=== PATIENT | female | born 1995 | race Caucasian/White ===

== ENCOUNTER 2021-10-05 05:33 | Observation (INO) ==
--- NOTE | 2021-10-03 13:07 | Anesthesiology Consultation ---
Date of Service October 03, 2021 Assessment & Plan (1) Encounter for pre-operative examination: - COVID screening: Per assessment on 10/03: No known COVID-19 positive contacts or current COVID-19 related symptoms. Travel screen negative. Preop Covid test (10/01; [facility]) was negative. - Check test AM DOS Chart Review Chart Review: Acceptable Risk for Surgery and Patient NOT seen in Pre Admission Testing History Surgery Operation Date: 10/05/21 07:00 Proposed Procedures p Diagnostic Open Laparotomy, Abdominal Myomectomy - Indu Kim Height/Weight Height: 5 ft 8 in Weight: 108.862 kg Allergies Allergy/AdvReac Type Severity Reaction Status Date / Time No Known Allergies Allergy Verified 10/03/21 12:16 Medications Home Medications Medication Instructions Recorded Confirmed Last Taken albuterol 90 mcg/actuation aerosol 90 mcg INHALATION Q4H PRN 10/03/21 10/03/21 Unknown inhaler venlafaxine 37.5 mg tablet 37.5 mg PO QAM 10/03/21 10/03/21 Unknown Past Medical History Medical History Anxiety Asthma well controlled Depression History of COVID-19 02/2021 Medical cannabis use Obesity Past Family History Family History Other No family history of adverse response to anesthesia Past Surgical History Surgical History H/O wisdom tooth extraction Hx of hemorrhoidectomy Social History Smoking Status: Current some day smoker tobacco type: cigarettes Do You Dip or Chew Tobacco: No Hx Alcohol Use: Yes Alcohol type: beer Hx Substance Use: Yes (medical THC) substance use type: marijuana Testing Laboratory Results 10/01/21 WBC 10.76 H/H 13.9/41.1 PLATELETS 264 SODIUM 139 POTASSIUM 3.9 CHLORIDE 104 CO2 23 BUN 10 CREATININE 0.7 GLUCOSE 84
[2021-10-05] MEDS ORDERED: LACTATED RINGER'S 1,000 ML IV SCH ×2 (06:00→10:30)
[2021-10-05] MEDS ORDERED: LR 15ML/HR IV SCH (06:00)
[2021-10-05] MEDS ORDERED: MIDAZOLAM HCL 1 MG/ML 2ML VIAL ONE (06:36)
[2021-10-05] MEDS ORDERED: fentaNYL citrate 100 MCG/2 ML VIAL ONE ×2 (06:37)
[2021-10-05] MEDS ORDERED: SCOPOLAMINE 1 MG TDSY TD ONE (06:37)
[2021-10-05] MEDS ORDERED: HYDROmorphone INJ 1 MG/ML SYRINGE ONE (06:37)
[2021-10-05] MEDS ORDERED: BUPIVACAINE LIPOSOME 1.3% 266 MG/20 ML VIAL ONE ×2 (06:40→07:09)
[2021-10-05] MEDS ORDERED: VASOPRESSIN 20 UNIT/ML VIAL ONE (06:40)
[2021-10-05] MEDS ORDERED: GLYCOPYRROLATE 0.2 MG/ML VIAL ONE (06:40)
[2021-10-05] MEDS ORDERED: DEXAMETHASONE SOD INJ 4 MG/ML VIAL ONE (06:40)
[2021-10-05] MEDS ORDERED: NEOSTIGMINE METHYLSULFATE 1 MG/ML 10ML VIAL ONE (06:40)
[2021-10-05] MEDS ORDERED: PROPOFOL IV EMULSION 10 MG/ML 20 ML VIAL IV ONE (06:40)
[2021-10-05] MEDS ORDERED: ROCURONIUM BROMIDE 10 MG/ML 5 ML VIAL IV ONE ×4 (06:40→08:33)
[2021-10-05] MEDS ORDERED: ONDANSETRON INJ 2 MG/ML 2 ML VIAL ONE (06:40)
[2021-10-05] MEDS ORDERED: diphenhydrAMINE 50 MG/ML VIAL ONE (06:40)
[2021-10-05] MEDS ORDERED: SODIUM CHLORIDE 0.9% PF 50 ML VIAL ONE (06:41)
[2021-10-05] MEDS ORDERED: ALBUMIN HUMAN 5% 12.5 GM/250 ML VIAL IV ONE (06:41)
[2021-10-05] MEDS ORDERED: SODIUM CHLORIDE 0.9% INJ 10 ML VIAL ONE (06:41)
[2021-10-05] MEDS ORDERED: ACETAMINOPHEN 1000 MG/100 ML IV IV ONE (06:41)
--- NOTE | 2021-10-05 06:43 | History & Physical Bridge Note ---
Date of Service October 05, 2021 History & Physical Bridge Note I have examined the patient, reviewed the History & Physical and in the interval since the performance of the History & Physical I have noted the following changes of clinical significance: no changes noted
[2021-10-05] MEDS ORDERED: BUPIVACAINE 0.5 % 5 MG/1 ML PF 10ML VIAL ONE (07:03)
[2021-10-05] MEDS ORDERED: HEPARIN (PORCINE) 1000 UNIT/ML 10 ML (CATH LAB USE ONLY) ONE (07:03)
[2021-10-05] MEDS ORDERED: BUPIVACAINE 0.5 % 5 MG/1 ML MPF 30ML VIAL ONE (07:24)
[2021-10-05] MEDS ORDERED: ALBUTEROL HFA INHALER 8.5 GM ONE (08:02)
[2021-10-05] MEDS ORDERED: HYDROmorphone INJ 1 MG/ML SYRINGE IV PRN (08:40)
[2021-10-05] MEDS ORDERED: ATROPINE SULFATE 0.1 MG/ML 10ML SYR IV PRN (08:40)
[2021-10-05] MEDS ORDERED: ePHEDrine sulfate 50 MG/ML AMP IV PRN (08:40)
[2021-10-05] MEDS ORDERED: ONDANSETRON INJ 2 MG/ML 2 ML VIAL IV PRN ×2 (08:40→10:12)
--- NOTE | 2021-10-05 10:06 | Post Operative Brief Note ---
Immediate Post Op Note v1 Date of Surgery October 05, 2021 Pre & Post Diagnosis Operation Date: 10/05/21 07:00 Pre-Op Diagnosis: Fibroid of Cervix Post-Op Diagnosis: Fibroid of Cervix I identified the patient and participated in the time-out.: Yes Procedure Operation Date: 10/05/21 07:00 Actual Procedures p Diagnostic Open Laparotomy, Abdominal Myomectomy(Not Applicable) - Indu Kim Surgeon Indu Kim Family Member Caretaker Claudia Brown PA-C Estimated Blood Loss 100 Findings Consistent with Post-Op Diagnosis Drains Ruano Catheter (inserted at start of procedure by EDIE)
--- NOTE | 2021-10-05 10:10 | Operative Report ---
Post Operative Report Pre & Post Diagnosis Operation Date: 10/05/21 07:00 Pre-Op Diagnosis: Fibroid of Cervix Post-Op Diagnosis: Fibroid of Cervix I identified the patient and participated in the time-out.: Yes Procedure Operation Date: 10/05/21 07:00 Actual Procedures p Diagnostic Open Laparotomy, Abdominal Myomectomy(Not Applicable) - Indu Kim Surgeon Indu Kim Therapeutic Recreation Assistant Claudia Brown PA-C Estimated Blood Loss 100 Findings See Below 1. Small anteverted uterus 2. Normal appearing fallopian tubes and ovaries bilaterally 3. 6 cm (approximate estimate) cervical fibroid invading into the posterior uterine serosa Fluids See Anesthesia Report Specimens Cervical fibroid Drains Sanford catheter. Urine during the procedure: 400 ml Anesthesia Type General Complications none Indications 26 yo with irregular heavy menses, dysmenorrhea and pain without menses. Imaging revealed a 5.9 cm cervical fibroid. Patient presents today for abdominal myomectomy Description of Procedure The patient was taken to the operating room when anesthesia was found to be adequate for the abdominal myomectomy procedure. A tap block was performed by Anesthesia (see note). She was then prepared and draped in a normal sterile fashion, in dorsal lithotomy position. A sanford catheter was placed without dif ficulty. Attention was turned to the patients abdomen, at which time a Pfannenstiel skin incision was made with a scalpel and carried down to the underlying fascia with a Bovie. This incision was extended laterally using Aguilar scissors. The superior and inferior aspects of this incision were grasped with the Cliff clamps, elevated, and the rectus muscles were dissected off. Access was gained to the peritoneal cavity through a separation of the rectus muscles. At that time, a survey of the upper abdomen revealed no gross abnormalities palpated. The pelvis showed a normal appearing uterus with an enlarged cervical fibroid. At that time, the bowel was packed away with large moist lap pads. The Turner retractor was placed into the patients abdomen to facilitate visualization.The patient was placed in slight Trendelenburg. Once there was proper visualization of the uterus, the posterior surface of the uterus was then evaluated and vasopressin was injected along the myoma surface. Once the myoma was isolated, it was grasped with a single tooth tenaculum and radha clamps. Blunt dissection and needle tip Bovie cautery was used to shell out of the myometrium completely. Once the cervical fibroid was removed, the remaining surface was closed in three layers using 0 V-loc in a running fashion. The serosa layer was closed with 3-0 Vicryl in a baseball stitch. This was done all along the posterior surface of the uterus where the myoma was removed. Once the cervical fibroid was removed, the pelvis was then irrigated with warm normal saline and again hemostasis was ensured. All packs and retractors were removed from the patients abdomen. She was flattened out of the Trendelenburg position. The fascia was injected with 12 cc of exparel. The fascia was then reapproximated using 0 PDS . The subcutaneous tissue was closed using 2-0 Vicryl suture in running fashion and finally the skin was closed with 4-0 monocryl and dermabond. Sponge, lap, and needle counts were correct x2 and she was taken to the recovery room in stable condition. My Therapeutic Recreation Assistant was necessary throughout the procedure for uterine manipulation, retraction, handling of the instruments to ensure adequate visualization, gentle tissue manipulation, and hemostasis. Cell saver was utilized throughout the case. Due to minimal EBL, Patient did not require a transfusion. I attest to the content of the Intraoperative Record and any orders documented therein. Any exceptions are noted below.
[2021-10-05] MEDS: fentaNYL citrate 100 MCG/2 ML VIAL IV PRN ×3 (10:18→10:50)
[2021-10-05] MEDS: KETOROLAC 30 MG/ML VIAL IV SCH ×3 (10:33→22:23)
[2021-10-05] MEDS ORDERED: KETOROLAC 30 MG/ML VIAL ONE (10:33)
--- NOTE | 2021-10-05 11:18 | Anesthesiology Progress Note ---
Date of Service October 05, 2021 Anesthesia Post Procedure Vital Signs Vital Signs: Temp Pulse Pulse Resp BP Pulse Ox 10/05/21 11:10 61 19 140/94 96 10/05/21 11:00 36.5 C 60 20 149/96 H 99 10/05/21 10:50 79 20 149/93 H 97 10/05/21 10:40 70 18 139/92 97 10/05/21 10:30 62 16 147/89 H 96 10/05/21 10:20 63 20 142/98 H 96 10/05/21 10:10 66 18 150/99 H 94 10/05/21 10:03 37.1 C 95 H 18 140/81 96 10/05/21 05:45 37.2 C 85 18 153/88 H 99 Pain Intensity Vaginal: Pain Intensity: 4 Transfer of Care Handoff Completed per policy Notes Mental Status: alert / awake / arousable and participated in evaluation Patient Amnestic to Procedure: Yes Nausea / Vomiting: adequately controlled Pain: adequately controlled Airway Patency, RR, SpO2: stable & adequate BP & HR: stable & adequate Hydration State: stable & adequate Anesthetic Complications: no major complications apparent and Pt Satisfied with anesthetic care
[2021-10-05] MEDS: oxyCODONE HCL IR 5 MG TAB (IMMEDIATE RELEASE) PO PRN ×2 (12:05→23:15)
[2021-10-05] MEDS: DOCUSATE SODIUM 100 MG CAP PO SCH ×2 (15:03→20:24)
[2021-10-05] MEDS: SIMETHICONE 80 MG CHEW PO SCH ×2 (15:03→20:24)
[2021-10-05] MEDS: ACETAMINOPHEN 325 MG TAB PO SCH ×2 (15:03→22:24)
[2021-10-05] MEDS: CHECK SCOPOLAMINE PATCH PLACEMENT SCH (16:59)
[2021-10-06] MEDS: KETOROLAC 30 MG/ML VIAL IV SCH (04:23)
[2021-10-06] MEDS: ACETAMINOPHEN 325 MG TAB PO SCH (05:58)
--- NOTE | 2021-10-06 08:37 | Gynecologic Progress Note ---
Date of Service October 06, 2021 Assessment & Plan (1) Status post myomectomy: Plan: discharged to home f/u next week in office Admission and Anticipated Discharge Date Admission Date: October 05, 2021 Subjective doing well. plans for d/c today Review of Systems Review of Systems: All systems reviewed & are unremarkable except as noted in HPI & below Physical Exam Constitutional: WD/WN, vitals as above Gastrointestinal (Abdomen): normal bowel sounds, soft, nontender, no hepatosplenomegaly Inspection/Auscultation: abdomen normal to inspection incision c/d/i Skin: no rashes, warm and dry no edema. neg Cornelius's Results & Data ([facility]) Vital Signs (Past 12 Hours) Vital Signs Temp Pulse Resp BP Pulse Ox 10/06/21 03:25 36.5 C 60 16 117/77 97 10/05/21 23:10 36.6 C 95 H 16 130/74 97 Laboratory Results 10/05/21 10/05/21 10/05/21 05:44 05:53 05:57 POC Ur Test NEG SARS-CoV-2, RNA, NAAT NEGATIVE Blood Type O Positive Antibody Screen NEGATIVE
[2021-10-06] MEDS ORDERED: Nursing to Pharmacy Communication SCH (09:00)
[2021-10-06] MEDS: CHECK SCOPOLAMINE PATCH PLACEMENT SCH ×2 (10:05)
[2021-10-06] MEDS ORDERED: IBUPROFEN 600 MG TAB PO ONE (10:13)
[2021-10-06] MEDS: DOCUSATE SODIUM 100 MG CAP PO SCH (10:18)
[2021-10-06] MEDS: SIMETHICONE 80 MG CHEW PO SCH (10:18)
[2021-10-06] MEDS ORDERED: IBUPROFEN 600 MG TAB PO STA (10:22)
--- NOTE | 2021-10-09 11:35 | Discharge Summary ---
Date of Service October 09, 2021 Admission HPI Per Admitting Provider 26 year [id number] using condoms for contraception presents for evaluation of cervical fibroid. Patient reports monthly menses, lasting 4-5 days with heavy flow. Patient reports irregular bleeding in Jun 2021 for 10 days. Patient was using pads and changing every couple of hours. Patient also reports intense pain with and without menses.Pain on the right side.Patient describes pain as deep, twisting and pullingsensation.Pain radiates down right leg. Motrin helps decrease pain. Nothing worsens the pain. Endorses urinary frequency and constipation. Denies abnormal vaginal discharge. No history of abnormal pap smear. Last pap smear in 2019: NILM/-HPV. In Mar 2021, Patient c/o dysmenorrhea to PCP and a TVUS was ordered. TVUS in May 2021 revealed alarge heterogeneous hyperemic solid mass in the lower uterine segment/cervix primary differential diagnosis for which includes fibroid versus cervical mass/malignancy. An MRI was recommended. Subsequent MRI on 06/05/2021 revealed a5.9 cm cervical mass as described favored to represent a cervical fibroid. Patient then followed up withDr. Mccabe in Jun 2021, Dr. Mccabe advisedPatient of thebaseball size fibroid on posterior uterus likely source of constipation and painful period . He advised medical and surgical options including but not limited to Lupron, Depot vs uterine artery embolization (with interventional radiology) vs myomectomy. Dr. Mccabe referred to Patient for surgery as he is out on medical leave. Admission Exam (Per Admitting) Constitutional Constitutional: no acute distress Lungs: normal Heart: normal Abdomen: abdomen soft, non-tender, obese, normal bowel sounds and no masses or organomegaly Discharge Data Procedures Performed Operation Date: 10/05/21 07:00 Actual Procedures p Diagnostic Open Laparotomy, Abdominal Myomectomy(Not Applicable) - Indu Kim [place] [facility] (1) Status post myomectomy: s/p abdominal myomectomy. Discharge home with instructions and medications. Post-op appointment with Dr. Kim on 10/31/2021
== END 2021-10-06 11:40 | disposition home or self-care (01) ==
LOC: 4E1 05:33 → ASU 05:33
DX: F17.210 Nicotine dependence, cigarettes, uncomplicated; D25.9 Leiomyoma of uterus, unspecified; J45.909 Unspecified asthma, uncomplicated